=== PATIENT | female | born 1955 | race Caucasian/White ===

== ENCOUNTER 2025-03-16 12:11 | Outpatient (CLI) | payer OTHER | END 2025-03-16 12:12 | disposition home or self-care (01) | LOC: LABBT 12:11 | PROVIDERS: ATTEND Student in an Organized Health Care Education/Training Program | DX: Z01.818 Encounter for other preprocedural examination (principal); I65.22 Occlusion and stenosis of left carotid artery | CPT/HCPCS: 71046; 93005; 93010 ==

== ENCOUNTER 2025-03-16 12:30 | Inpatient (IN) | payer MEDICAID, OTHER ==
[2025-03-16 13:12] LABS: #Basophils 0.06 10x3/uL (0.0-0.2); #Eosinophils 0.40 10x3/uL (0.0-0.7); #Monocytes 0.49 10x3/uL (0.11-0.59); #Neutrophils 4.04 10x3/uL (1.40-6.50); %Basophils 0.8 % (0.0-1.0); %Eosinophils 5.4 % (0.0-10.0); %Lymphocytes 33.1 % (21.0-51.0); %Monocytes 6.6 % (0.0-10.0); %Neutrophils 54.0 % (42.0-75.0); Hematocrit 38.0 % (36.0-47.0); Hemoglobin 12.3 g/dL (12.0-16.0); Mean Corpuscular Hemoglobin 29.6 pg (27.0-31.0); Mean Corpuscular Volume 91.6 fL (78.0-98.0); Platelet Count 202 10x3/uL (130-400); Red Blood Cell (RBC) Count 4.15 mill/uL (4.20-5.40); White Blood Cell (WBC) Count 7.47 10x3/uL (4.8-10.8)
[2025-03-16 13:39] LABS: Anion Gap 10 mmol/L (10-20); BUN (Urea Nitrogen) 11 mg/dL (9.8-20.1); Calc. Creatinine Clearance 0 mL/min (70-130); Calcium 8.8 mg/dL (7.8-10.44); Carbon Dioxide 25 mmol/L (23-31); Chloride 107 mmol/L (98-107); Glucose 105 mg/dL (83-110); Potassium 4.5 mmol/L (3.5-5.1); Sodium 137 mmol/L (136-145)
[2025-03-19] MEDS ORDERED: Heparin 5,000 UNITS/ML VIAL ONE (06:39)
[2025-03-19] MEDS ORDERED: CEFAZOLIN 2 GM VIAL ONE (07:04)
[2025-03-19] MEDS ORDERED: Rocuronium Bromide 10 MG/ML (10ML VIAL) ONE (07:16)
[2025-03-19] MEDS ORDERED: Ondansetron PF 4 MG/2 ML Vial ONE (07:16)
[2025-03-19] MEDS ORDERED: PROPOFOL 20 ML ONE (07:16)
[2025-03-19] MEDS ORDERED: Lidocaine 1% PF 5 ML VIAL ONE (07:16)
[2025-03-19] MEDS ORDERED: SUGAMMADEX SODIUM 200 MG/2 ML VIAL ONE (09:22)
[2025-03-19] MEDS ORDERED: hydrALAZINE 20 MG/ML VIAL ONE (11:19)
[2025-03-19] MEDS ORDERED: Albuterol 200 PUFF INH INH PRN (14:30)
[2025-03-19] MEDS: hydrALAZINE 20 MG/ML VIAL SLOW IVP PRN (15:48)
[2025-03-19] MEDS: Acetaminophen 325 MG TAB PO SCH (16:07)
[2025-03-19] MEDS: Lisinopril 10 MG TAB PO SCH (18:03)
[2025-03-19] MEDS: HYDROcodone/Acetaminophen 5/325 mg Tablet PO PRN (20:17)
[2025-03-19 23:08] VITALS: BP 145/75
[2025-03-20] MEDS: niCARdipine 25 MG in Sodium Chloride 0.9% 250 ML 250 ML IVPB PRN (02:38)
[2025-03-20] MEDS: hydrALAZINE 20 MG/ML VIAL SLOW IVP SCH (03:00)
[2025-03-20] MEDS: Ondansetron PF 4 MG/2 ML Vial IVP PRN (03:35)
[2025-03-20] MEDS: hydrALAZINE 20 MG/ML VIAL ONE (03:43)
[2025-03-20] MEDS: Ketorolac Tromethamine 30 MG (1 mL) VIAL IVP SCH (03:43)
[2025-03-20 06:10] LABS: #Basophils 0.04 10x3/uL (0.0-0.2); #Eosinophils 0.10 10x3/uL (0.0-0.7); #Monocytes 0.85 10x3/uL (0.11-0.59); #Neutrophils 8.75 10x3/uL (1.40-6.50); %Basophils 0.3 % (0.0-1.0); %Eosinophils 0.8 % (0.0-10.0); %Lymphocytes 19.7 % (21.0-51.0); %Monocytes 7.0 % (0.0-10.0); %Neutrophils 71.9 % (42.0-75.0); Hematocrit 35.2 % (36.0-47.0); Hemoglobin 11.9 g/dL (12.0-16.0); Mean Corpuscular Hemoglobin 29.6 pg (27.0-31.0); Mean Corpuscular Volume 87.6 fL (78.0-98.0); Platelet Count 244 10x3/uL (130-400); Red Blood Cell (RBC) Count 4.02 mill/uL (4.20-5.40); White Blood Cell (WBC) Count 12.18 10x3/uL (4.8-10.8)
[2025-03-20 06:23] LABS: Anion Gap 14 mmol/L (10-20); BUN (Urea Nitrogen) 12 mg/dL (9.8-20.1); Calc. Creatinine Clearance 76 mL/min (70-130); Calcium 9.0 mg/dL (7.8-10.44); Carbon Dioxide 20 mmol/L (23-31); Chloride 110 mmol/L (98-107); Glucose 144 mg/dL (83-110); Potassium 3.5 mmol/L (3.5-5.1); Sodium 140 mmol/L (136-145)
[2025-03-20] MEDS: Bupropion 150 MG SR.TAB PO SCH (07:38)
[2025-03-20] MEDS: Sertraline 100 MG TAB PO SCH (07:39)
[2025-03-20] MEDS: Lisinopril 10 MG TAB PO SCH (07:39)
[2025-03-20] MEDS: Aspirin Chewable 81 MG TAB PO SCH (07:40)
[2025-03-20 12:16] VITALS: TEMP 97.8
[2025-03-20 15:49] VITALS: BMI 21.7
== END 2025-03-20 18:01 | disposition home or self-care (01) | DRG 39 ==
LOC: SURG A 03-19 06:01 → CCU 03-19 15:45
PROVIDERS: ADMIT Student in an Organized Health Care Education/Training Program; ATTEND Student in an Organized Health Care Education/Training Program
PROC: 3E03329 Introduction of Other Anti-infective into Peripheral Vein, Percutaneous Approach (ICD-10-PCS; principal; 2025-03-19)
PROC: 03CJ0ZZ Extirpation of Matter from Left Common Carotid Artery, Open Approach (ICD-10-PCS; 2025-03-19)
PROC: 03CL0ZZ Extirpation of Matter from Left Internal Carotid Artery, Open Approach (ICD-10-PCS; 2025-03-19)
PROC: 03UL0KZ Supplement Left Internal Carotid Artery with Nonautologous Tissue Substitute, Open Approach (ICD-10-PCS; 2025-03-19)
PROC: 3E033XZ Introduction of Vasopressor into Peripheral Vein, Percutaneous Approach (ICD-10-PCS; 2025-03-19)
DX: I65.22 Occlusion and stenosis of left carotid artery (principal); I10 Essential (primary) hypertension; E78.5 Hyperlipidemia, unspecified; J43.9 Emphysema, unspecified; F32.A Depression, unspecified; F41.9 Anxiety disorder, unspecified; Z95.828 Presence of other vascular implants and grafts; Z85.3 Personal history of malignant neoplasm of breast; Z92.21 Personal history of antineoplastic chemotherapy; Z92.3 Personal history of irradiation; Z87.891 Personal history of nicotine dependence; Z86.16 Personal history of COVID-19; Z98.890 Other specified postprocedural states; Z90.710 Acquired absence of both cervix and uterus; Z90.12 Acquired absence of left breast and nipple; Z79.899 Other long term (current) drug therapy; Z79.82 Long term (current) use of aspirin; Z97.3 Presence of spectacles and contact lenses; Z97.2 Presence of dental prosthetic device (complete) (partial)
CPT/HCPCS: 36415; 70450; 71045; 72125; 80048; 85025; 86850; 86900; 86901; 94640; C1768; J0169; J0360; J0665; J1100; J1644; J1885; J2270; J2405; J2704; J2720; J3010; J7030; J7050; J7620